=== PATIENT | male | born 1980 | race Caucasian/White ===

== ENCOUNTER → 2016-11-13 | Outpatient (CLI) | payer OTHER ==
--- NOTE | 2016-11-13 08:55 | DIAGNOSTIC IMAGING REPORT ---
CT SINUSES WITH BRAIN LAB CT DOSE: 277.22 mGycm CLINICAL HISTORY: SINUSITIS TECHNIQUE: Helical images were acquired in the transverse plane. The brain lab protocol was followed. COMPARISON STUDY: None. FINDINGS: There is minimal mucosal thickening within the base of the maxillary sinuses. There is mild mucosal thickening within the sphenoid and ethmoid air cells. There is mild mucosal thickening within the frontal sinuses. No orbital lesions are visualized. There is no hydrocephalus. There is partial pneumatization the right middle turbinate. There are bilateral Jennifer cells. There is mild infundibular narrowing left ostiomeatal unit. There is a left-sided nasal septal spur. There is soft tissue narrowing the frontoethmoidal recesses. IMPRESSION: 1. Mild pansinus mucosal thickening 2. No evidence of acute sinusitis 3. Partial pneumatization right middle turbinate 4. Bilateral Jennifer cells 5. Moderate infundibular narrowing of the left ostiomeatal unit Electronically signed by: Tc Jarquin M.D. 11/13/2016 8:54 AM Dictated Date/Time: 11/13/2016 8:46 AM
== END | disposition home or self-care (01) ==
LOC: C.CTS 08:33
PROVIDERS: ATTEND Otolaryngology
DX: J32.9 Chronic sinusitis, unspecified (principal)